=== PATIENT | male | born 1950 | race Two or more races ===

== ENCOUNTER 2018-02-01 15:25 | Inpatient (IN) | payer MEDICARE ==
[~2018-02-01] VITALS: Ht 162.6 cm; Wt 74.5 kg
[2018-02-01 16:01] LABS: BASOPHILS # (AUTO) 0.02 x10^3/uL (0-0.1); BASOPHILS % (AUTO) 0 % (0-1); EOSINOPHILS # (AUTO) 0.13 x10^3/uL (0-0.4); EOSINOPHILS % (AUTO) 2 % (1-7); LYMPHOCYTES # (AUTO) 2.19 x10^3/uL (1-3.4); LYMPHOCYTES % (AUTO) 24 % (22-44); MD NO; MEAN CORPUSCULAR HEMOGLOBIN 30.1 pg (27.5-34.5); MEAN CORPUSCULAR HGB CONC 33.8 g/dL (33.2-36.2); MEAN CORPUSCULAR VOLUME 89.1 fL (81-97); MEAN PLATELET VOLUME 7.4 fL (7.4-10.4); MONOCYTES # (AUTO) 0.84 x10^3/uL (0.2-0.8); MONOCYTES % (AUTO) 9 % (2-9); NEUTROPHILS # (AUTO) 6.11 x10^3/uL (1.8-6.8); NEUTROPHILS % (AUTO) 66 % (42-75); PLATELET COUNT 370 x10^3/uL (130-400); RED BLOOD COUNT 5.59 x10^6/uL (4.38-5.82); RED CELL DISTRIBUTION WIDTH 13.3 % (9.4-14.8)
[2018-02-01 16:11] LABS: ALBUMIN 3.9 g/dL (3.4-5.0); ANION GAP 10 mmol/L (5-15); CALCIUM 9.6 mg/dL (8.5-10.1); CHLORIDE 105 mmol/L (98-107)
[2018-02-01 16:16] LABS: CREATININE 1.31 mg/dL (0.7-1.3)
[2018-02-01 16:20] LABS: TROPONIN I 0.349 ng/mL (0.000-0.045)
[2018-02-01] MEDS ORDERED: OMNIPAQUE 350 MG/ML, 100ML BOTTLE ONE (16:52)
[2018-02-01 17:16] LABS: INTERNATIONAL NORMALIZED RATIO 1.01 (0.93-1.1); PROTHROMBIN TIME 10.4 Seconds (9.6-11.5)
[2018-02-01] MEDS ORDERED: HEPARIN 25,000 UNITS/500ML PMX 500 ML ONE (17:21)
[2018-02-01] MEDS ORDERED: HEPARIN 5,000 UNITS/ML, 1ML ONE (17:21)
[2018-02-01] MEDS ORDERED: LOSA50TA7 PO (17:23)
[2018-02-01] MEDS ORDERED: TAMS0.4C2 PO (17:23)
[2018-02-01] MEDS ORDERED: ASPI-515 PO (17:23)
[2018-02-01] MEDS: HEPARIN 25,000 UNITS/500ML PMX 500 ML IV PRN (17:41)
[2018-02-01] MEDS ORDERED: HEPARIN 5,000 UNITS/ML, 1ML IV ONE (18:00)
[2018-02-01] MEDS ORDERED: ENALAPRILAT 1.25 MG/ML, 2ML IVPush PRN (19:00)
[2018-02-01] MEDS ORDERED: ONDANSETRON ODT 4 MG PO PRN (19:00)
[2018-02-01] MEDS ORDERED: TEMAZEPAM 15 MG CAPSULE PO PRN (19:00)
[2018-02-01] MEDS ORDERED: ACETAMINOPHEN 325 MG TABLET PO PRN (19:00)
[2018-02-01 19:30] LABS: TROPONIN I 0.453 ng/mL (0.000-0.045)
[2018-02-01] MEDS: NICOTINE 21 MG/24 HR PATCH.TD24 TD SCH (19:48)
[2018-02-01 20:14] VITALS: BP 166/83
[2018-02-01] MEDS: TAMSULOSIN 0.4 MG CAP.ER.24H PO SCH (21:29)
[2018-02-02] VITALS (11 sets, daily range): BP systolic 117–143; BP diastolic 69–98
[2018-02-02] MEDS: HEPARIN 5,000 UNITS/ML, 1ML IV PRN ×3 (00:15→21:47)
[2018-02-02 06:22] LABS: BASOPHILS # (AUTO) 0.05 x10^3/uL (0-0.1); BASOPHILS % (AUTO) 1 % (0-1); EOSINOPHILS # (AUTO) 0.17 x10^3/uL (0-0.4); EOSINOPHILS % (AUTO) 2 % (1-7); LYMPHOCYTES # (AUTO) 2.32 x10^3/uL (1-3.4); LYMPHOCYTES % (AUTO) 25 % (22-44); MD NO; MEAN CORPUSCULAR HEMOGLOBIN 30.3 pg (27.5-34.5); MONOCYTES # (AUTO) 0.64 x10^3/uL (0.2-0.8); MONOCYTES % (AUTO) 7 % (2-9); NEUTROPHILS # (AUTO) 6.27 x10^3/uL (1.8-6.8); NEUTROPHILS % (AUTO) 66 % (42-75); PLATELET COUNT 307 x10^3/uL (130-400); RED BLOOD COUNT 5.25 x10^6/uL (4.38-5.82); RED CELL DISTRIBUTION WIDTH 13.4 % (9.4-14.8)
[2018-02-02 06:24] LABS: ANION GAP 8 mmol/L (5-15); CALCIUM 8.8 mg/dL (8.5-10.1); CHLORIDE 106 mmol/L (98-107); CREATININE 1.19 mg/dL (0.7-1.3)
[2018-02-02] MEDS ORDERED: TAMSULOSIN 0.4 MG CAP.ER.24H PO SCH (09:00)
[2018-02-02] MEDS: ASPIRIN 81 MG TABLET EC PO SCH (09:15)
[2018-02-02] MEDS: LOSARTAN 50MG TABLET PO SCH (09:15)
[2018-02-02] MEDS: HEPARIN 25,000 UNITS/500ML PMX 500 ML IV PRN (18:29)
[2018-02-02] MEDS ORDERED: FENTANYL PF 100 MCG/2ML ONE ×2 (19:02→20:16)
[2018-02-02] MEDS ORDERED: CEFAZOLIN 1,000 MG ONE ×3 (19:03→20:04)
[2018-02-02] MEDS ORDERED: ESMOLOL 100 MG/10 ML ONE (19:37)
[2018-02-02] MEDS ORDERED: PHENYLEPHRINE 10 MG/ML ONE (19:37)
[2018-02-02] MEDS ORDERED: NEOSTIGMINE 1 MG/ML, 10ML ONE (20:04)
[2018-02-02] MEDS ORDERED: ROCURONIUM 10MG/ML,5ML ONE (20:04)
[2018-02-02] MEDS ORDERED: ONDANSETRON 2MG/ML, 2ML ONE (20:04)
[2018-02-02] MEDS ORDERED: DEXAMETHASONE 4 MG/ML, 1ML ONE (20:04)
[2018-02-02] MEDS ORDERED: PROPOFOL 10 MG/ML, 20ML ONE (20:04)
[2018-02-02] MEDS ORDERED: GLYCOPYRROLATE 0.2MG/1ML, 5ML ONE (20:04)
[2018-02-02] MEDS ORDERED: SUCCINYLCHOLINE 20 MG/ML, 10ML ONE (20:04)
[2018-02-02] MEDS ORDERED: OXYcodone 5 MG/5 ML ORAL.SOL UDC ONE (20:16)
[2018-02-02] MEDS: FENTANYL PF 100 MCG/2ML IV PRN ×2 (20:18→20:34)
[2018-02-02] MEDS: OXYcodone 5 MG/5 ML ORAL.SOL UDC PO PRN (20:26)
[2018-02-02] MEDS ORDERED: LABETALOL 5MG/ML, 20ML ONE (20:27)
[2018-02-02] MEDS ORDERED: METOPROLOL 1 MG/ML, 5ML IV PRN (20:30)
[2018-02-02] MEDS ORDERED: hydrALAzine 20 MG/ML, 1ML IV PRN (20:30)
[2018-02-02] MEDS ORDERED: MEPERIDINE/PF 25MG/0.5ML IVPush PRN (20:30)
[2018-02-02] MEDS ORDERED: LABETALOL 5MG/ML, 20ML IV PRN (20:30)
[2018-02-02] MEDS ORDERED: DIAZEPAM 5 MG/ML, 2ML IVPush PRN (20:30)
[2018-02-02] MEDS ORDERED: DIPHENHYDRAMINE 50 MG/ML, 1ML IVPush PRN (20:30)
[2018-02-02] MEDS ORDERED: HYDROmorphone 2 MG/ML, 1ML ONE (20:43)
[2018-02-02] MEDS: HYDROmorphone 1 MG/ML, 1ML IV PRN ×2 (20:44→20:56)
[2018-02-02] MEDS: TAMSULOSIN 0.4 MG CAP.ER.24H PO SCH (21:52)
[2018-02-02] MEDS: NICOTINE 21 MG/24 HR PATCH.TD24 TD SCH (21:53)
[2018-02-03] VITALS (7 sets, daily range): BP systolic 111–137; BP diastolic 61–78
[2018-02-03] MEDS: ASPIRIN 81 MG TABLET EC PO SCH (08:30)
[2018-02-03] MEDS: LOSARTAN 50MG TABLET PO SCH (08:31)
[2018-02-03] MEDS: HEPARIN 25,000 UNITS/500ML PMX 500 ML IV PRN (16:25)
[2018-02-03] MEDS: NICOTINE 21 MG/24 HR PATCH.TD24 TD SCH (20:29)
[2018-02-03] MEDS: TAMSULOSIN 0.4 MG CAP.ER.24H PO SCH (20:29)
[2018-02-03] MEDS: DOCUSATE 100 MG CAPSULE PO PRN (23:20)
[2018-02-04 00:48] VITALS: BP 139/73
[2018-02-04] MEDS: OXYcodone 5 MG/5 ML ORAL.SOL UDC PO PRN (03:13)
[2018-02-04] MEDS: HEPARIN 5,000 UNITS/ML, 1ML IV PRN (05:50)
[2018-02-04] MEDS: OXYcodone IR 5MG TABLET PO PRN ×3 (08:19→22:58)
[2018-02-04 08:31] VITALS: BP 129/76
[2018-02-04] MEDS: LOSARTAN 50MG TABLET PO SCH (10:20)
[2018-02-04] MEDS: ASPIRIN 81 MG TABLET EC PO SCH (10:20)
[2018-02-04] MEDS: PHENAZOPYRIDINE 200 MG TABLET PO SCH ×3 (11:55→20:29)
[2018-02-04 13:40] VITALS: BP 151/76
[2018-02-04] MEDS: HEPARIN 25,000 UNITS/500ML PMX 500 ML IV PRN (15:03)
[2018-02-04] MEDS: POLYETHYLENE GLYCOL 17 GM PACKET PO PRN (15:08)
[2018-02-04 19:24] VITALS: BP 121/71
[2018-02-04] MEDS: NICOTINE 21 MG/24 HR PATCH.TD24 TD SCH (20:29)
[2018-02-04] MEDS: TAMSULOSIN 0.4 MG CAP.ER.24H PO SCH (20:29)
[2018-02-04] MEDS: DOCUSATE 100 MG CAPSULE PO PRN (22:58)
[2018-02-05 02:24] VITALS: BP 151/98
[2018-02-05] MEDS: HEPARIN 5,000 UNITS/ML, 1ML IV PRN ×2 (03:53→16:47)
[2018-02-05 07:01] VITALS: BP 149/77
[2018-02-05] MEDS: OXYcodone IR 5MG TABLET PO PRN ×3 (08:45→21:36)
[2018-02-05] MEDS: LOSARTAN 50MG TABLET PO SCH (08:46)
[2018-02-05] MEDS: ASPIRIN 81 MG TABLET EC PO SCH (08:46)
[2018-02-05] MEDS: PHENAZOPYRIDINE 200 MG TABLET PO SCH ×3 (08:46→21:36)
[2018-02-05] MEDS: FINASTERIDE 5 MG TABLET PO SCH (08:46)
[2018-02-05 11:31] LABS: BASOPHILS # (AUTO) 0.11 x10^3/uL (0-0.1); BASOPHILS % (AUTO) 1 % (0-1); EOSINOPHILS # (AUTO) 0.47 x10^3/uL (0-0.4); EOSINOPHILS % (AUTO) 4 % (1-7); LYMPHOCYTES # (AUTO) 2.85 x10^3/uL (1-3.4); LYMPHOCYTES % (AUTO) 21 % (22-44); MD NO; MEAN CORPUSCULAR HEMOGLOBIN 29.6 pg (27.5-34.5); MEAN CORPUSCULAR VOLUME 89.8 fL (81-97); MEAN PLATELET VOLUME 11.2 fL (7.4-10.4); MONOCYTES # (AUTO) 1.08 x10^3/uL (0.2-0.8); MONOCYTES % (AUTO) 8 % (2-9); NEUTROPHILS # (AUTO) 8.79 x10^3/uL (1.8-6.8); NEUTROPHILS % (AUTO) 66 % (42-75); PLATELET COUNT 339 x10^3/uL (130-400); RED BLOOD COUNT 4.85 x10^6/uL (4.38-5.82); RED CELL DISTRIBUTION WIDTH 13.3 % (9.4-14.8)
[2018-02-05 11:32] LABS: ALBUMIN 3.7 g/dL (3.4-5.0); ANION GAP 9 mmol/L (5-15); CALCIUM 8.7 mg/dL (8.5-10.1); CHLORIDE 101 mmol/L (98-107)
[2018-02-05 11:37] LABS: ALANINE AMINOTRANSFERASE 44 U/L (12-78); ALKALINE PHOSPHATASE 107 U/L (45-117); BILIRUBIN,TOTAL 0.5 mg/dL (0.2-1.0); TOTAL PROTEIN 8.5 g/dL (6.4-8.2)
[2018-02-05] MEDS: HEPARIN 25,000 UNITS/500ML PMX 500 ML IV PRN (12:08)
[2018-02-05 12:49] LABS: MICROSCOPIC INDICATED
[2018-02-05 12:50] LABS: CULTURE INDICATED? YES
[2018-02-05 15:35] VITALS: BP 168/89
[2018-02-05 16:58] VITALS: BP 146/78
[2018-02-05 18:19] LABS: INTERNATIONAL NORMALIZED RATIO 1.02 (0.93-1.1); PROTHROMBIN TIME 10.5 Seconds (9.6-11.5)
[2018-02-05] MEDS: WARFARIN 1 MG TABLET PO-COUM SCH (18:25)
[2018-02-05] MEDS: WARFARIN 5 MG TABLET PO-COUM SCH (18:26)
[2018-02-05 20:11] VITALS: BP 131/69
[2018-02-05] MEDS: TAMSULOSIN 0.4 MG CAP.ER.24H PO SCH (21:36)
[2018-02-05] MEDS: NICOTINE 21 MG/24 HR PATCH.TD24 TD SCH (21:36)
[2018-02-06] MEDS: OXYcodone IR 5MG TABLET PO PRN ×4 (02:14→20:07)
[2018-02-06 02:23] VITALS: BP 121/67
[2018-02-06 06:10] LABS: ANION GAP 9 mmol/L (5-15); CALCIUM 8.6 mg/dL (8.5-10.1); CHLORIDE 100 mmol/L (98-107)
[2018-02-06 06:11] LABS: CREATININE 1.06 mg/dL (0.7-1.3)
[2018-02-06 06:14] LABS: BASOPHILS # (AUTO) 0.12 x10^3/uL (0-0.1); BASOPHILS % (AUTO) 1 % (0-1); EOSINOPHILS # (AUTO) 0.76 x10^3/uL (0-0.4); EOSINOPHILS % (AUTO) 7 % (1-7); LYMPHOCYTES # (AUTO) 2.43 x10^3/uL (1-3.4); LYMPHOCYTES % (AUTO) 23 % (22-44); MD NO; MEAN CORPUSCULAR HGB CONC 33.4 g/dL (33.2-36.2); MEAN CORPUSCULAR VOLUME 89.7 fL (81-97); MEAN PLATELET VOLUME 8.1 fL (7.4-10.4); MONOCYTES # (AUTO) 1.02 x10^3/uL (0.2-0.8); MONOCYTES % (AUTO) 10 % (2-9); NEUTROPHILS # (AUTO) 6.46 x10^3/uL (1.8-6.8); NEUTROPHILS % (AUTO) 60 % (42-75); PLATELET COUNT 318 x10^3/uL (130-400); RED CELL DISTRIBUTION WIDTH 13.2 % (9.4-14.8)
[2018-02-06] MEDS: HEPARIN 5,000 UNITS/ML, 1ML IV PRN (06:30)
[2018-02-06 06:55] VITALS: BP 120/67
[2018-02-06] MEDS: FINASTERIDE 5 MG TABLET PO SCH (07:46)
[2018-02-06] MEDS: LOSARTAN 50MG TABLET PO SCH (07:47)
[2018-02-06] MEDS: ASPIRIN 81 MG TABLET EC PO SCH (07:47)
[2018-02-06] MEDS: ENOXAPARIN 80 MG/0.8 ML SQ SCH ×2 (09:05→20:43)
[2018-02-06 12:55] VITALS: BP 101/58
[2018-02-06 17:25] LABS: INTERNATIONAL NORMALIZED RATIO 1.17 (0.93-1.1)
[2018-02-06] MEDS: WARFARIN 1 MG TABLET PO-COUM SCH (17:52)
[2018-02-06] MEDS: WARFARIN 5 MG TABLET PO-COUM SCH (17:52)
[2018-02-06 20:04] VITALS: BP 122/68
[2018-02-06] MEDS: DOCUSATE 100 MG CAPSULE PO PRN (20:43)
[2018-02-06] MEDS: TAMSULOSIN 0.4 MG CAP.ER.24H PO SCH (20:43)
[2018-02-06] MEDS: NICOTINE 21 MG/24 HR PATCH.TD24 TD SCH (20:44)
[2018-02-07] MEDS: OXYcodone IR 5MG TABLET PO PRN (00:41)
[2018-02-07 02:24] VITALS: BP 111/63
[2018-02-07 06:14] LABS: INTERNATIONAL NORMALIZED RATIO 1.51 (0.93-1.1); PROTHROMBIN TIME 15.4 Seconds (9.6-11.5)
[2018-02-07 06:16] LABS: ANION GAP 9 mmol/L (5-15); CHLORIDE 103 mmol/L (98-107); CREATININE 1.13 mg/dL (0.7-1.3)
[2018-02-07 07:12] VITALS: BP 145/72
[2018-02-07 07:13] LABS: BASOPHILS % (AUTO) 1 % (0-1); EOSINOPHILS # (AUTO) 0.38 x10^3/uL (0-0.4); EOSINOPHILS % (AUTO) 5 % (1-7); LYMPHOCYTES % (AUTO) 25 % (22-44); MD NO; MEAN CORPUSCULAR HEMOGLOBIN 29.6 pg (27.5-34.5); MEAN CORPUSCULAR HGB CONC 33.3 g/dL (33.2-36.2); MEAN PLATELET VOLUME 7.6 fL (7.4-10.4); MONOCYTES # (AUTO) 0.73 x10^3/uL (0.2-0.8); MONOCYTES % (AUTO) 9 % (2-9); NEUTROPHILS # (AUTO) 5.12 x10^3/uL (1.8-6.8); NEUTROPHILS % (AUTO) 61 % (42-75); PLATELET COUNT 368 x10^3/uL (130-400); RED BLOOD COUNT 3.88 x10^6/uL (4.38-5.82); RED CELL DISTRIBUTION WIDTH 12.8 % (9.4-14.8)
[2018-02-07] MEDS: ASPIRIN 81 MG TABLET EC PO SCH (08:47)
[2018-02-07] MEDS: FINASTERIDE 5 MG TABLET PO SCH (08:47)
[2018-02-07] MEDS: LOSARTAN 50MG TABLET PO SCH (08:47)
[2018-02-07] MEDS: ENOXAPARIN 80 MG/0.8 ML SQ SCH ×2 (08:47→20:21)
[2018-02-07] MEDS: POLYETHYLENE GLYCOL 17 GM PACKET PO PRN (08:56)
[2018-02-07 12:36] VITALS: BP 131/69
[2018-02-07] MEDS: OXYBUTYNIN CHLORIDE 5 MG TABLET PO SCH ×2 (16:16→20:20)
[2018-02-07] MEDS ORDERED: SODIUM CHLORIDE 0.9% 1,000 ML IV SCH (17:00)
[2018-02-07] MEDS: WARFARIN 1 MG TABLET PO-COUM SCH (18:27)
[2018-02-07] MEDS: WARFARIN 5 MG TABLET PO-COUM SCH (18:28)
[2018-02-07 19:26] VITALS: BP 122/68
[2018-02-07] MEDS: TAMSULOSIN 0.4 MG CAP.ER.24H PO SCH (20:20)
[2018-02-07] MEDS: NICOTINE 21 MG/24 HR PATCH.TD24 TD SCH (20:21)
[2018-02-08 02:56] VITALS: BP 128/70
[2018-02-08 06:10] LABS: INTERNATIONAL NORMALIZED RATIO 2.39 (0.93-1.1); PROTHROMBIN TIME 24.2 Seconds (9.6-11.5)
[2018-02-08 06:35] VITALS: BP 117/69
[2018-02-08 09:01] VITALS: BP 150/71
[2018-02-08] MEDS: FINASTERIDE 5 MG TABLET PO SCH (09:02)
[2018-02-08] MEDS: OXYBUTYNIN CHLORIDE 5 MG TABLET PO SCH ×3 (09:02→21:10)
[2018-02-08] MEDS: LOSARTAN 50MG TABLET PO SCH (09:02)
[2018-02-08 11:46] LABS: BASOPHILS # (AUTO) 0.03 x10^3/uL (0-0.1); BASOPHILS % (AUTO) 0 % (0-1); EOSINOPHILS # (AUTO) 0.21 x10^3/uL (0-0.4); EOSINOPHILS % (AUTO) 2 % (1-7); LYMPHOCYTES % (AUTO) 13 % (22-44); MD NO; MEAN CORPUSCULAR HEMOGLOBIN 29.7 pg (27.5-34.5); MEAN CORPUSCULAR HGB CONC 33.6 g/dL (33.2-36.2); MEAN CORPUSCULAR VOLUME 88.4 fL (81-97); MEAN PLATELET VOLUME 7.2 fL (7.4-10.4); MONOCYTES # (AUTO) 0.62 x10^3/uL (0.2-0.8); MONOCYTES % (AUTO) 6 % (2-9); NEUTROPHILS # (AUTO) 7.57 x10^3/uL (1.8-6.8); NEUTROPHILS % (AUTO) 78 % (42-75); PLATELET COUNT 384 x10^3/uL (130-400); RED BLOOD COUNT 3.61 x10^6/uL (4.38-5.82)
[2018-02-08 13:00] VITALS: BP 126/71
[2018-02-08] MEDS ORDERED: WARFARIN 2 MG TABLET PO-COUM SCH (18:00)
[2018-02-08 19:14] VITALS: BP 121/68
[2018-02-08] MEDS: NICOTINE 21 MG/24 HR PATCH.TD24 TD SCH (21:08)
[2018-02-08] MEDS: TAMSULOSIN 0.4 MG CAP.ER.24H PO SCH (21:09)
[2018-02-09 03:13] VITALS: BP 119/63
[2018-02-09 05:30] LABS: INTERNATIONAL NORMALIZED RATIO 2.9 (0.93-1.1); PROTHROMBIN TIME 29.3 Seconds (9.6-11.5)
[2018-02-09 05:33] LABS: ANION GAP 9 mmol/L (5-15); CALCIUM 8.4 mg/dL (8.5-10.1); CHLORIDE 105 mmol/L (98-107)
[2018-02-09 05:35] LABS: BASOPHILS # (AUTO) 0.25 x10^3/uL (0-0.1); BASOPHILS % (AUTO) 4 % (0-1); EOSINOPHILS # (AUTO) 0.27 x10^3/uL (0-0.4); EOSINOPHILS % (AUTO) 4 % (1-7); LYMPHOCYTES % (AUTO) 33 % (22-44); MD NO; MEAN CORPUSCULAR HEMOGLOBIN 30.4 pg (27.5-34.5); MEAN CORPUSCULAR HGB CONC 33.8 g/dL (33.2-36.2); MEAN PLATELET VOLUME 7.7 fL (7.4-10.4); MONOCYTES # (AUTO) 0.63 x10^3/uL (0.2-0.8); MONOCYTES % (AUTO) 9 % (2-9); NEUTROPHILS # (AUTO) 3.32 x10^3/uL (1.8-6.8); NEUTROPHILS % (AUTO) 50 % (42-75); PLATELET COUNT 401 x10^3/uL (130-400); RED BLOOD COUNT 3.42 x10^6/uL (4.38-5.82)
[2018-02-09 08:59] VITALS: BP 120/69
[2018-02-09] MEDS: FINASTERIDE 5 MG TABLET PO SCH (09:17)
[2018-02-09] MEDS: OXYBUTYNIN CHLORIDE 5 MG TABLET PO SCH ×3 (09:17→21:15)
[2018-02-09] MEDS: LOSARTAN 50MG TABLET PO SCH (09:17)
[2018-02-09 15:57] VITALS: BP 121/63
[2018-02-09 19:01] VITALS: BP 110/75
[2018-02-09] MEDS: TAMSULOSIN 0.4 MG CAP.ER.24H PO SCH (21:15)
[2018-02-09] MEDS: NICOTINE 21 MG/24 HR PATCH.TD24 TD SCH (21:16)
[2018-02-10 00:16] VITALS: BP 126/68
[2018-02-10 06:11] LABS: INTERNATIONAL NORMALIZED RATIO 2.1 (0.93-1.1); PROTHROMBIN TIME 21.3 Seconds (9.6-11.5)
[2018-02-10 07:15] VITALS: BP 127/59
[2018-02-10] MEDS: FINASTERIDE 5 MG TABLET PO SCH (11:52)
[2018-02-10] MEDS: LOSARTAN 50MG TABLET PO SCH (11:56)
[2018-02-10] MEDS: OXYBUTYNIN CHLORIDE 5 MG TABLET PO SCH ×3 (11:56→21:24)
[2018-02-10 11:58] VITALS: BP 133/73
[2018-02-10 14:12] VITALS: BP 151/70
[2018-02-10] MEDS: WARFARIN 5 MG TABLET PO-COUM SCH (17:20)
[2018-02-10 19:17] VITALS: BP 117/59
[2018-02-10] MEDS: TAMSULOSIN 0.4 MG CAP.ER.24H PO SCH (21:24)
[2018-02-10] MEDS: NICOTINE 21 MG/24 HR PATCH.TD24 TD SCH (21:24)
[2018-02-11 02:30] VITALS: BP 149/66
[2018-02-11 05:01] LABS: INTERNATIONAL NORMALIZED RATIO 2.09 (0.93-1.1); PROTHROMBIN TIME 21.2 Seconds (9.6-11.5)
[2018-02-11 08:14] VITALS: BP 123/69
[2018-02-11] MEDS: FINASTERIDE 5 MG TABLET PO SCH (09:27)
[2018-02-11] MEDS: LOSARTAN 50MG TABLET PO SCH (09:28)
[2018-02-11] MEDS: OXYBUTYNIN CHLORIDE 5 MG TABLET PO SCH ×2 (09:29→17:01)
[2018-02-11 13:57] VITALS: BP 115/65
[2018-02-11] MEDS ORDERED: OXYB5TAB7 PO (17:01)
[2018-02-11] MEDS: WARFARIN 5 MG TABLET PO-COUM SCH (17:01)
[2018-02-11] MEDS ORDERED: POLY17PO5 PO (17:01)
[2018-02-11] MEDS ORDERED: FINA5TAB4 PO (17:01)
[2018-02-11] MEDS ORDERED: TRAM50TA2 PO (17:01)
[2018-02-11] MEDS ORDERED: OXYC5TAB3 PO (17:01)
[2018-02-11] MEDS ORDERED: NICO-487 TD (17:01)
[2018-02-11] MEDS ORDERED: WARF5TAB PO-COUM (17:01)
[2018-02-11] MEDS ORDERED: ONDA4TAB13 PO (17:01)
== END 2018-02-11 22:26 | disposition home health service (06) | DRG 280 ==
LOC: ED 17:58 → EDIP 18:00 → 4EST 18:43
PROVIDERS: ADMIT Internal Medicine; ATTEND Internal Medicine
PROC: 0TCB8ZZ Extirpation of Matter from Bladder, Via Natural or Artificial Opening Endoscopic (ICD-10-PCS; principal; 2018-02-02 19:00)
DX: I82.401 Acute embolism and thrombosis of unspecified deep veins of right lower extremity (principal); I21.A1 Myocardial infarction type 2; I26.99 Other pulmonary embolism without acute cor pulmonale; N17.0 Acute kidney failure with tubular necrosis; N02.9 Recurrent and persistent hematuria with unspecified morphologic changes; N13.30 Unspecified hydronephrosis; I82.B12 Acute embolism and thrombosis of left subclavian vein; N40.1 Benign prostatic hyperplasia with lower urinary tract symptoms; R33.8 Other retention of urine; F17.210 Nicotine dependence, cigarettes, uncomplicated; I70.0 Atherosclerosis of aorta; I11.9 Hypertensive heart disease without heart failure; N32.89 Other specified disorders of bladder; D64.9 Anemia, unspecified; D73.4 Cyst of spleen; K44.9 Diaphragmatic hernia without obstruction or gangrene; Z86.711 Personal history of pulmonary embolism; Z80.0 Family history of malignant neoplasm of digestive organs; Z79.899 Other long term (current) drug therapy; Z79.82 Long term (current) use of aspirin; Z79.1 Long term (current) use of non-steroidal anti-inflammatories (NSAID)
CPT/HCPCS: 36415; 71045; 71275; 74175; 74176; 76770; 80048; 80053; 81001; 82040; 83880; 84484; 85014; 85018; 85025; 85520; 85610; 85730; 87040; 87086; 93005; 93306; 93970; 96374; 99291; G0378; J0690; J1100; J1170; J1644; J1650; J2405; J2704; J2710; J3010; J3490; Q9967; J0330; J2370

== ENCOUNTER → 2018-04-26 | Outpatient (CLI) | payer MEDICARE ==
[~2018-04-26] MED LIST: ASPI-515 PO; FINA5TAB4 PO; LOSA50TA7 PO; NICO-487 TD; OMNIPAQUE 350 MG/ML, 100ML BOTTLE ONE; ONDA4TAB13 PO; OXYB5TAB7 PO; OXYC5TAB3 PO; POLY17PO5 PO; TAMS0.4C2 PO; TRAM50TA2 PO; WARF5TAB PO-COUM
[2018-04-26 15:01] LABS: CREATININE 1.21 mg/dL (0.7-1.3)
== END | disposition home or self-care (01) ==
LOC: RAD 14:23
PROVIDERS: ATTEND Family Medicine
DX: I65.22 Occlusion and stenosis of left carotid artery (principal)
CPT/HCPCS: 36415; 71275; 82565; 93970; Q9967

== ENCOUNTER → 2018-08-30 | Outpatient (CLI) | payer MEDICARE ==
[~2018-08-30] MED LIST changes: +CEFU250T66 PO; +CIPR500T87 PO; +LOSA50TA14 PO; -LOSA50TA7 PO; -OMNIPAQUE 350 MG/ML, 100ML BOTTLE ONE; +WARF2.5T PO
[2018-08-30 16:12] LABS: ALANINE AMINOTRANSFERASE 33 U/L (12-78); ALBUMIN 3.9 g/dL (3.4-5.0); ANION GAP 6 mmol/L (5-15); CALCIUM 8.9 mg/dL (8.5-10.1); CHLORIDE 108 mmol/L (98-107); CREATININE 1.22 mg/dL (0.7-1.3)
[2018-08-30 16:14] LABS: ALKALINE PHOSPHATASE 95 U/L (45-117); BILIRUBIN,TOTAL 0.4 mg/dL (0.2-1.0); TOTAL PROTEIN 8.5 g/dL (6.4-8.2)
== END | disposition home or self-care (01) ==
LOC: STAR 15:06
PROVIDERS: ATTEND Urology
DX: Z01.818 Encounter for other preprocedural examination (principal); N40.1 Benign prostatic hyperplasia with lower urinary tract symptoms
CPT/HCPCS: 36415; 80053; 93005

== ENCOUNTER 2018-09-05 14:59 | Day surgery (SDC) | payer MEDICARE ==
[2018-08-30 15:39] VITALS: BP 153/90
[~2018-09-05] VITALS: Ht 165.1 cm; Wt 75.2 kg
[2018-09-05] MEDS ORDERED: LACTATED RINGERS 1,000 ML IV SCH (15:30)
[2018-09-05 16:12] LABS: INTERNATIONAL NORMALIZED RATIO 0.98 (0.93-1.1); PROTHROMBIN TIME 10.3 Seconds (9.6-11.5)
[2018-09-05] MEDS ORDERED: FENTANYL PF 100 MCG/2ML ONE ×3 (16:22→17:57)
[2018-09-05] MEDS ORDERED: ONDANSETRON 2MG/ML, 2ML ONE (16:25)
[2018-09-05] MEDS ORDERED: DEXAMETHASONE 4 MG/ML, 1ML ONE (16:25)
[2018-09-05] MEDS ORDERED: PROPOFOL 10 MG/ML, 20ML ONE (16:25)
[2018-09-05] MEDS ORDERED: OXYcodone 5 MG/5 ML ORAL.SOL UDC PO PRN (17:00)
[2018-09-05] MEDS ORDERED: ALBUTEROL SULFATE 2.5 MG/3 ML NPPB PRN (17:00)
[2018-09-05] MEDS ORDERED: HYDROmorphone 2 MG/ML, 1ML IVPush PRN (17:00)
[2018-09-05] MEDS ORDERED: PROMETHAZINE 25 MG/ML, 1ML IV PRN (17:00)
[2018-09-05] MEDS ORDERED: LABETALOL 5MG/ML, 20ML IV PRN (17:00)
[2018-09-05] MEDS ORDERED: HALOPERIDOL 5 MG/ML IV PRN (17:00)
[2018-09-05] MEDS ORDERED: hydrALAzine 20 MG/ML, 1ML IV PRN (17:00)
[2018-09-05] MEDS ORDERED: FENTANYL PF 100 MCG/2ML IV PRN (17:00)
[2018-09-05] MEDS ORDERED: OXYcodone 5 MG/5 ML ORAL.SOL UDC ONE (17:57)
[2018-09-05] MEDS ORDERED: OPIUM/BELLADONNA SUPP.RECT 16.2-60 MG PR PRN (18:00)
[2018-09-05] MEDS ORDERED: OPIUM/BELLADONNA SUPP.RECT 16.2-60 MG ONE (18:00)
[2018-09-05] MEDS ORDERED: LABETALOL 5 MG/ML SYRINGE IV PRN (18:00)
[2018-09-05] MEDS ORDERED: MORPHINE SULFATE 4 MG/ML, 1ML IV PRN (19:00)
[2018-09-05] MEDS ORDERED: HYDROcodone/APAP 5/325 TABLET PO PRN (19:00)
[2018-09-05] MEDS ORDERED: ONDANSETRON 2MG/ML, 2ML IV PRN (19:00)
[2018-09-05 19:56] VITALS: BP 140/82
[2018-09-05] MEDS: DOCUSATE 100 MG CAPSULE PO SCH (21:00)
[2018-09-06 00:50] VITALS: BP 137/77
[2018-09-06] MEDS: LACTATED RINGERS 1,000 ML IV SCH ×2 (01:34→04:55)
[2018-09-06 04:00] VITALS: BP 112/71
[2018-09-06] MEDS: CIPROFLOXACIN/PMX 400MG/200ML 200 ML IVPB SCH ×2 (04:55→16:23)
[2018-09-06 06:32] VITALS: BP 128/67
[2018-09-06] MEDS: DOCUSATE 100 MG CAPSULE PO SCH (09:31)
[2018-09-06 13:11] VITALS: BP 103/52
[2018-09-08] MEDS ORDERED: CIPR500T87 PO (22:33)
== END 2018-09-06 19:10 | disposition home or self-care (01) ==
LOC: OR 14:59 → 4NOR 18:28 → OR 18:40 → 4NOR 18:40 → UNDOADMIN 18:40 → UNDODISIN 09-06 19:10 → OR 09-06 19:10
PROVIDERS: ATTEND Urology
DX: N40.1 Benign prostatic hyperplasia with lower urinary tract symptoms (principal); R33.8 Other retention of urine; R39.14 Feeling of incomplete bladder emptying; R39.12 Poor urinary stream; I10 Essential (primary) hypertension; Z79.01 Long term (current) use of anticoagulants; Z79.899 Other long term (current) drug therapy; Z86.718 Personal history of other venous thrombosis and embolism; Z86.711 Personal history of pulmonary embolism; Z90.79 Acquired absence of other genital organ(s); Z82.79 Family history of other congenital malformations, deformations and chromosomal abnormalities; Z87.891 Personal history of nicotine dependence
CPT/HCPCS: 36415; 85610; 88305; G0378; J0744; J1100; J2405; J2704; J3010; C1769; J7120